=== PATIENT | female | born 1970 | race Two or more races ===

== ENCOUNTER 2016-09-23 11:06 | Emergency (ER) | payer BC ==
[~2016-09-23] VITALS: Ht 167.6 cm; Wt 72.6 kg
--- NOTE | 2016-09-23 11:10 | NUR ---
PATIENT BIB RA D/T CHEST PAIN. PATIENT STATING SHE CANT TAKE A FULL DEEP BREATH WITHOUT PAIN. PATIENT A/OX 4, BREATHING EVEN AND UN LABORED ON ROOM AIR. NO SOB. NO DISTRESS. SAFETY AND COMFORT MEASURES IN PLACE, AWAITING MD ORDERS.
--- NOTE | 2016-09-23 11:10 | NUR ---
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 BLOOD SAMPLE COLLECTED SENT TO LAB
--- NOTE | 2016-09-23 11:20 | NUR ---
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
[2016-09-23 11:32] LABS: BASOPHILS % (AUTO) 0.5 % (0.0-2.0); EOSINOPHILS # (AUTO) 0.2 /CMM (0.0-0.7); EOSINOPHILS % (AUTO) 1.7 % (0.0-6.0); HEMATOCRIT 34 % (33-45); HEMOGLOBIN 10.9 g/dL (11.5-14.8); LYMPHOCYTES # (AUTO) 3.1 /CMM (0.8-4.8); LYMPHOCYTES % (AUTO) 34.7 % (20.0-44.0); MEAN CORPUSCULAR HEMOGLOBIN 25 PG (26.0-33.0); MEAN CORPUSCULAR HGB CONC 32 g/dl (31.0-36.0); MEAN CORPUSCULAR VOLUME 78 fL (82-100); MONOCYTES # (AUTO) 0.6 /CMM (0.1-1.30); MONOCYTES % (AUTO) 6.3 % (2.0-12.0); NEUTROPHILS # (AUTO) 5.2 /CMM (1.8-8.9); NEUTROPHILS % (AUTO) 56.8 % (43.0-81.0); PLATELET COUNT (AUTO) 398 /CMM (150-450); RDW COEFFICIENT OF VARIATION 16.2 (11.5-15.0); RED BLOOD CELL COUNT(AUTO) 4.36 MIL/uL (4.0-5.2); WHITE BLOOD COUNT (AUTO) 9.1 K/uL (4.3-11.0)
[2016-09-23 11:41] LABS: CALCIUM, SERUM 8.9 mg/dL (8.5-10.1); CARBON DIOXIDE 27 mmol/L (21-32); CHLORIDE 104 mmol/L (98-107); CREATININE 0.7 mg/dL (0.6-1.3); GLUCOSE 96 mg/dL (74-106); POTASSIUM 4.2 mmol/L (3.5-5.1); SODIUM SERUM 137 mmol/L (136-145); UREA NITROGEN, BLOOD 11 mg/dL (7-18)
--- NOTE | 2016-09-23 11:45 | NUR ---
URINE OBTAINED AND SENT TO LAB
[2016-09-23 11:46] LABS: INR 0.99 (0.87-1.13); PROTHROMBIN TIME 10.3 SECS (9.5-12.7)
[2016-09-23 11:50] LABS: TROPONIN I < 0.017 ng/mL (0.00-0.056)
[2016-09-23] MEDS ORDERED: CT SWABBABLE VALVE TRANS SET 1 EA INFUS.SET MC ONE (11:54)
[2016-09-23] MEDS ORDERED: IV NS 0.9% 250 ML IV ONE (11:54)
[2016-09-23] MEDS ORDERED: IOHEXOL-350 100 ML VIAL IV ONE (11:54)
--- NOTE | 2016-09-23 11:57 | NUR ---
PATIENT TAKEN TO CT VIA WHEELCHAIR.
[2016-09-23 13:04] VITALS: BP 138/74
--- NOTE | 2016-09-23 13:26 | NUR ---
Patient discharged to home in stable condition. Written and verbal after care instructions given. Patient verbalizes understanding of instruction.
== END 2016-09-23 13:27 | disposition home or self-care (01) ==
LOC: ER 11:07
DX: R07.9 Chest pain, unspecified (principal); Z88.1 Allergy status to other antibiotic agents
CPT/HCPCS: 36415; 71010; 71275; 80048; 84484; 85025; 85730; 93005; 99285; A4606; J7050; Q9967; Z7610